=== PATIENT | female | born 1965 | race Caucasian/White ===

== ENCOUNTER 2017-05-05 15:07 | Emergency (ER) | payer SELFPAY | END 2017-05-05 18:41 | disposition home or self-care (01) | LOC: D.ER 15:07 | DX: S80.01XA Contusion of right knee, initial encounter (principal); V43.52XA Car driver injured in collision with other type car in traffic accident, initial encounter; Y93.89 Activity, other specified; Y92.410 Unspecified street and highway as the place of occurrence of the external cause; S39.012A Strain of muscle, fascia and tendon of lower back, initial encounter; S29.012A Strain of muscle and tendon of back wall of thorax, initial encounter; M62.838 Other muscle spasm ==

== ENCOUNTER 2017-10-12 18:26 | Emergency (ER) | payer SELFPAY | END 2017-10-12 19:55 | disposition home or self-care (01) | LOC: D.ER 18:26 | DX: S43.401A Unspecified sprain of right shoulder joint, initial encounter (principal); W19.XXXA Unspecified fall, initial encounter; Y93.89 Activity, other specified; Y92.019 Unspecified place in single-family (private) house as the place of occurrence of the external cause; F17.200 Nicotine dependence, unspecified, uncomplicated ==

== ENCOUNTER 2017-12-09 14:39 | Emergency (ER) | payer MEDICARE ==
[~2017-12-09] VITALS: Ht 162.6 cm; Wt 54.5 kg
[2017-12-09 14:42] VITALS: Ht 162.6 cm; Wt 54.5 kg
[2017-12-09] MEDS ORDERED: SEROQUEL100 MG PO (14:44)
[2017-12-09] MEDS ORDERED: HALDOL5 MG PO (14:44)
[2017-12-09] MEDS ORDERED: TORADOL10 MG PO (17:41)
[2017-12-09 18:20] VITALS: BP 135/84
== END 2017-12-09 18:20 | disposition home or self-care (01) ==
LOC: D.ER 14:39
DX: S20.212A Contusion of left front wall of thorax, initial encounter (principal); Y04.2XXA Assault by strike against or bumped into by another person, initial encounter; Y93.89 Activity, other specified; Y92.019 Unspecified place in single-family (private) house as the place of occurrence of the external cause; F17.200 Nicotine dependence, unspecified, uncomplicated